=== PATIENT | male | born 1970 | race Caucasian/White ===

== ENCOUNTER → 2017-02-07 | Outpatient (CLI) | payer BC ==
[~2017-02-07] MED LIST: ASPIRIN E.C.81 M2 PO; FLOMAX0.4 MG PO; Lopid PO; MOTRIN600 MG PO; ONE DAILY FOR1 EACH PO; PERCOCET 5/31 TABLET PO; ZOLOFT100 MG PO
== END | disposition home or self-care (01) ==
LOC: CDC 09:41
DX: R94.31 Abnormal electrocardiogram [ECG] [EKG] (principal); K43.9 Ventral hernia without obstruction or gangrene
CPT/HCPCS: 93000

== ENCOUNTER 2017-02-17 08:37 | Day surgery (SDC) | payer BC ==
[~2017-02-17] VITALS: Ht 175.3 cm; Wt 95.4 kg
[2017-02-17 09:09] VITALS: BP 148/103
[2017-02-17] MEDS ORDERED: NORCO 5/3251 TABLET PO (11:53)
[2017-02-17 13:05] VITALS: BP 156/94
[2017-02-17 14:15] VITALS: BP 154/94
[2017-02-17 15:15] VITALS: BP 151/96
== END 2017-02-17 15:30 | disposition home or self-care (01) ==
LOC: SDC 08:37
PROC: 0WUF4JZ Supplement Abdominal Wall with Synthetic Substitute, Percutaneous Endoscopic Approach (ICD-10-PCS; principal; 2017-02-17)
DX: K43.9 Ventral hernia without obstruction or gangrene (principal); I10 Essential (primary) hypertension; F41.9 Anxiety disorder, unspecified; Z87.891 Personal history of nicotine dependence; Z83.3 Family history of diabetes mellitus; Z82.49 Family history of ischemic heart disease and other diseases of the circulatory system
CPT/HCPCS: C1781; J0330; J0690; J1170; J2250; J2405; J2710; J3010